=== PATIENT | male | born 1985 ===

== ENCOUNTER 2017-01-26 00:30 | Inpatient (IN) | payer MEDICAID, SELFPAY ==
[2017-01-26] MEDS ORDERED: Morphine 4 MG/ML VIAL IV ONE ×2 (01:06→02:14)
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
[2017-01-26] MEDS ORDERED: Morphine 4 MG/ML VIAL ONE ×2 (01:09→02:10)
[2017-01-26 01:42] LABS: BASO # 0.1 K/uL (0.0-0.2); BASO % 0.7 % (0.0-2.0); EOS # 0.1 K/uL (0.0-0.7); EOS % 0.6 % (0.0-4.0); HEMOGLOBIN 12.6 g/dL (12.0-18.0); LYMPH # 2.9 K/uL (1.0-4.3); LYMPH % 24.7 % (20.0-40.0); MEAN CELL VOLUME 83.2 fl (80.0-94.0); MEAN CORPUSCULAR HEMOGLOBIN 26.9 pg (27.0-31.0); MEAN CORPUSCULAR HGB CONC 32.4 g/dL (33.0-37.0); MEAN PLATELET VOLUME 8.4 fl (7.2-11.7); MONO # 0.4 K/uL (0.0-0.8); MONO % 3.8 % (0.0-10.0); NEUT # 8.2 K/uL (1.8-7.0); NEUT % 70.2 % (50.0-75.0); NRBC % 0.2 % (0.0-0.0); RBC 4.67 Mil/uL (4.40-5.90); RED CELL DISTRIBUTION WIDTH 14.8 % (11.5-14.5); WHITE BLOOD COUNT 11.7 K/uL (4.8-10.8)
[2017-01-26 01:54] LABS: ALB/GLOB RATIO 1.6 (1.0-2.1); ALBUMIN 4.7 g/dL (3.5-5.0); ALT/SGPT 63 U/L (21-72); AST/SGOT 33 U/L (17-59); BLOOD UREA NITROGEN 13 mg/dl (9-20); CALCIUM 9.4 mg/dL (8.4-10.2); GFR AFRICAN-AMERICAN > 60; GFR NON-AFRICAN AMERICAN > 60
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
[2017-01-26 02:47] LABS: INR 1.2 (0.9-1.2); PROTHROMBIN TIME 12.2 Seconds (9.8-13.1)
[2017-01-26] MEDS ORDERED: Potassium Chl 20 mEq in NS 1,000 ML IV SCH (04:00)
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
--- NOTE | 2017-01-26 08:40 | RAD ---
HISTORY: admission COMPARISON: No prior. FINDINGS: LUNGS: No active pulmonary disease. PLEURA: No significant pleural effusion identified, no pneumothorax apparent. CARDIOVASCULAR: Normal. OSSEOUS STRUCTURES: No significant abnormalities. VISUALIZED UPPER ABDOMEN: Normal. OTHER FINDINGS: None. IMPRESSION: No active disease. No preliminary report provided by emergency department personnel.
[2017-01-26] MEDS ORDERED: Thrombin Topical 5,000 IU Spray Kit ONE (09:58)
[2017-01-26 10:15] LABS: SQUAMOUS EPITHIAL < 1 /hpf (0-5); URINE BILIRUBIN NEGATIVE (NEGATIVE); URINE BLOOD NEGATIVE (NEGATIVE); URINE CLARITY CLEAR (Clear); URINE COLOR YELLOW (YELLOW); URINE GLUCOSE (UA) NEG (Normal); URINE LEUKOCYTE ESTERASE NEG Leu/uL (Negative); URINE NITRATE NEGATIVE (NEGATIVE); URINE PROTEIN NEGATIVE (NEGATIVE); URINE UROBILINOGEN 0.2-1.0 mg/dL (0.2-1.0)
[2017-01-26] MEDS: Morphine 4 MG/ML VIAL IVP PRN (10:41)
[2017-01-26] MEDS ORDERED: EPINEPHrine 1 mg/ml (1:1000) Inj ONE (11:06)
[2017-01-26] MEDS ORDERED: Propofol 10 mg/ml Inj (20 ML) ONE (11:48)
[2017-01-26] MEDS ORDERED: Rocuronium 10 mg/ml (5 ml) ONE ×3 (11:49→15:04)
[2017-01-26] MEDS ORDERED: Midazolam 2 MG/2 ML VIAL ONE (11:49)
[2017-01-26] MEDS ORDERED: Dexamethasone 4 mg/1 ml ONE (11:51)
[2017-01-26] MEDS ORDERED: Lactated Ringer's 1,000 ML IV ONE ×3 (12:30→17:30)
[2017-01-26] MEDS ORDERED: Sevoflurane - Inhalation Anesthetic Liq (250 ml) ONE (12:34)
[2017-01-26] MEDS ORDERED: Neostigmine Methylsulfate 2 MG/2 ML ML IV ONE (14:24)
[2017-01-26] MEDS ORDERED: Neostigmine Methylsulfate 3mg/3ml Syringe IV ONE (14:24)
[2017-01-26] MEDS ORDERED: Lactated Ringer's 1,000 ML IV SCH (15:41)
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
[2017-01-26] MEDS: HYDROmorphone 0.5 mg/0.5 ml ISec IVP PRN ×2 (16:50→17:40)
[2017-01-26] MEDS ORDERED: Oxycodone/Acetaminophen 5/325 mg Tab PO PRN (17:00)
[2017-01-26] MEDS ORDERED: ceFAZolin 2 GM in Sodium Chloride 0.9% 100 ML IVPB SCH (17:00)
[2017-01-26] MEDS ORDERED: HYDROmorphone 0.5 mg/0.5 ml ISec IVP PRN (17:01)
--- NOTE | 2017-01-26 17:08 | RAD ---
PROCEDURE: Left Femur Radiographs. HISTORY: ORIF left femur COMPARISON: 01/26/2017 TECHNIQUE: AP and Lateral Radiographs of the left femur. FINDINGS: FEMUR: Status post open reduction and internal fixation of an acute displaced fracture in the proximal diaphysis of femur with dynamic screw and intramedullary chloe. There is near normal alignment of fracture fragments. Bone mineralization is normal. SOFT TISSUES: Normal. OTHER FINDINGS: None. IMPRESSION: Status post ORIF of acute proximal femoral fracture, near normal alignment of fracture fragments.
[2017-01-26] MEDS ORDERED: Sodium Chloride 0.9% 1,000 ML IV SCH (17:15)
--- NOTE | 2017-01-26 17:42 | CARD ---
APPROVED REPORT EKG Measurement Heart [id number] <Conclusion> Normal sinus rhythm Minimal voltage criteria for LVH, may be normal variant Early repolarization Borderline ECG
[2017-01-26] MEDS: ceFAZolin 2 GM in Sodium Chloride 0.9% 100 ML IVPB SCH (20:47)
[2017-01-26] MEDS: Oxycodone/Acetaminophen 5/325 mg Tab PO PRN (22:23)
[2017-01-27] MEDS: Morphine 4 MG/ML VIAL IVP PRN ×5 (00:16→23:27)
[2017-01-27] MEDS: ceFAZolin 2 GM in Sodium Chloride 0.9% 100 ML IVPB SCH ×2 (04:14→12:23)
[2017-01-27 06:06] LABS: HEMOGLOBIN 10.9 g/dL (12.0-18.0); MEAN CELL VOLUME 82.2 fl (80.0-94.0); MEAN CORPUSCULAR HEMOGLOBIN 27.6 pg (27.0-31.0); MEAN CORPUSCULAR HGB CONC 33.6 g/dL (33.0-37.0); RBC 3.93 Mil/uL (4.40-5.90); RED CELL DISTRIBUTION WIDTH 14.6 % (11.5-14.5); WHITE BLOOD COUNT 10.1 K/uL (4.8-10.8)
[2017-01-27 06:22] LABS: BLOOD UREA NITROGEN 12 mg/dl (9-20); CALCIUM 8.7 mg/dL (8.4-10.2); GFR AFRICAN-AMERICAN > 60; GFR NON-AFRICAN AMERICAN > 60
[2017-01-27] MEDS: Oxycodone/Acetaminophen 5/325 mg Tab PO PRN ×2 (10:36→21:17)
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
[2017-01-27] MEDS ORDERED: Enoxaparin 40 mg Syringe SC STA (13:46)
--- NOTE | 2017-01-27 16:03 | CP.PCM.PN ---
Subjective - Date & Time of Evaluation Date of Evaluation: 01/27/17 Time of Evaluation: 16:00 - Subjective Subjective: S- pt with MINIMAL post op discomfort Objective - Vital Signs/Intake and Output Vital Signs (last 24 hours): Temp Pulse Resp BP Pulse Ox 98.6 F 93 H 20 146/82 98 01/27/17 08:01 01/27/17 08:01 01/27/17 08:01 01/27/17 08:01 01/27/17 08:01 - Medications Medications: Current Medications Enoxaparin Sodium (Lovenox) 40 mg SC DAILY [facility] PRN Reason: Protocol Famotidine (Pepcid) 20 mg IVP DAILY [facility] Last Admin: 01/27/17 10:37 Dose: 20 mg Hydromorphone HCl (Dilaudid) 1 mg IVP Q4 PRN PRN Reason: Pain, severe (8-10) Lactated Ringer's (Lactated Ringer's) 1,000 mls @ 50 mls/hr IV .Q20H [facility] Sodium Chloride (Sodium Chloride 0.9%) 1,000 mls @ 100 mls/hr IV .Q10H [facility] Stop: 01/27/17 17:03 Ketorolac Tromethamine (Toradol) 30 mg IM Q6 PRN PRN Reason: Pain, moderate (4-7) Last Admin: 01/26/17 04:46 Dose: 30 mg Morphine Sulfate (Morphine) 2 mg IVP Q4 PRN PRN Reason: Pain, severe (8-10) Last Admin: 01/27/17 07:59 Dose: 2 mg Oxycodone/Acetaminophen (Percocet 5/325 Mg Tab) 1 tab PO Q4 PRN PRN Reason: Pain, moderate (4-7) Stop: 01/29/17 17:01 Last Admin: 01/27/17 14:50 Dose: 1 tab Oxycodone/Acetaminophen (Percocet 5/325 Mg Tab) 2 tab PO Q6 PRN PRN Reason: Pain, severe (8-10) Stop: 01/29/17 17:01 Last Admin: 01/27/17 10:36 Dose: 2 tab - Labs Labs: 01/27/17 04:55 01/27/17 04:55 PT 12.2 Seconds (9.8-13.1) 01/26/17 02:19 INR 1.2 (0.9-1.2) 01/26/17 02:19 - Skin Skin Exam: Normal Color - Additional Findings Additional findings: systemic- wnl Musculoskekltal- stance gait - defrred pt comfoprtable at bedrest ortthopedically stable post op xrays- excellent position of construct Assessment and Plan - Assessment and Plan (Free Text) Assessment: A- s/p IM interlocking naiul P- foot flat weight bearing with crutches orthopedically stable
--- NOTE | 2017-01-27 16:19 | RAD ---
INTRAOPERATIVE FLUOROSCOPY LEFT FEMUR: Intra under fluoroscopy is utilized in open reduction and internal fixation of left femoral fracture. Multiple spot fluoroscopic images demonstrate stepwise approached to inserting an intramedullary nail transfixed by proximal and distal screws reducing the diaphyseal fracture. 167.6 seconds of fluoroscopy time was utilized. Please see operative report further detail. IMPRESSION: As discussed above.
[2017-01-28] MEDS: Morphine 4 MG/ML VIAL IVP PRN (05:30)
[2017-01-28] MEDS: Oxycodone/Acetaminophen 5/325 mg Tab PO PRN ×2 (08:16→13:27)
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
[2017-01-28] MEDS ORDERED: Enoxaparin 40 mg Syringe SC SCH (09:00)
[2017-01-28] MEDS ORDERED: Bisacodyl 5mg EC Tab PO PRN (09:39)
[2017-01-28 15:58] VITALS: BP 141/90; PULSE 93; RESP 18; TEMP 98.1; O2SAT 94
== END 2017-01-28 20:34 | disposition home or self-care (01) | DRG 482 ==
LOC: H.ER 00:30 → H.ERHOLD 02:30 → H.MEDSURG1 03:58
PROVIDERS: ADMIT Internal Medicine; ATTEND Internal Medicine
PROC: 0QS906Z Reposition Left Femoral Shaft with Intramedullary Internal Fixation Device, Open Approach (ICD-10-PCS; principal; 2017-01-26 12:00)
PROC: F07Z9FZ Gait Training/Functional Ambulation Treatment using Assistive, Adaptive, Supportive or Protective Equipment (ICD-10-PCS; 2017-01-27)
DX: S72.392A Other fracture of shaft of left femur, initial encounter for closed fracture (principal); V03.00XA Pedestrian on foot injured in collision with car, pick-up truck or van in nontraffic accident, initial encounter; Y92.480 Sidewalk as the place of occurrence of the external cause

== ENCOUNTER 2017-03-02 10:52 | Emergency (ER) | payer MEDICAID, SELFPAY ==
[2017-03-02 11:01] VITALS: BP 132/106; PULSE 99; TEMP 97; BMI 25.9
[2017-03-02 11:12] VITALS: RESP 16; O2SAT 99
--- NOTE | 2017-03-02 11:32 | ED PDOC ---
HPI: Wound Care - HPI Time Seen by Provider: 03/02/17 11:17 Chief Complaint (Nursing): Lower Extremity Problem/Injury History Per: Patient Exam Limitations: no limitations Location Of Injury: Left: Leg (wound) Severity: None Additional Complaint(s): Patient presents for wound check to left leg. Patient had left ORIF femur surgical repair by Dr Marvin on 01/26/17. He states rachele removed last week and wound opened, he went to see the doctor and steristrips applied, which fell off 2 days ago. Patient is taking Keflex 500mg. Denies any fever, drainage or pain. Past Medical History Reviewed: Historical Data, Nursing Documentation, Vital Signs Vital Signs: Last Vital Signs Temp 97 F L 03/02/17 11:08 Pulse 99 H 03/02/17 11:08 Resp 16 03/02/17 11:08 BP 132/106 H 03/02/17 11:08 Pulse Ox 99 03/02/17 11:08 - Medical History PMH: Fractures (femur) - Family History Family History: States: Unknown Family Hx - Home Medications Home Medications: Ambulatory Orders Medication Instructions Recorded Aspirin [Adult Low Dose Aspirin EC] 81 mg PO BID #60 tablet. 01/28/17 Docusate [Colace] 100 mg PO BID #30 cap 01/28/17 Ferrous Sulfate [Feosol] 325 mg PO BID #30 tab 01/28/17 oxyCODONE/Acetaminophen [Percocet 1 tab PO Q6 PRN #30 tab 01/28/17 5/325 mg Tab] - Allergies Allergies/Adverse Reactions: Allergies Allergy/AdvReac Type Severity Reaction Status Date / Time No Known Allergies Allergy Verified 10/04/15 20:17 Review of Systems Constitutional: Negative for: Fever Cardiovascular: Negative for: Chest Pain Respiratory: Negative for: Shortness of Breath Gastrointestinal: Negative for: Abdominal Pain Genitourinary Male: Negative for: Dysuria Musculoskeletal: Positive for: Leg Pain Skin: Positive for: Other (wound to left leg). Negative for: Rash Physical Exam - Reviewed Nursing Documentation Reviewed: Yes Vital Signs Reviewed: Yes - Physical Exam Appears: Positive for: Well, Non-toxic, No Acute Distress Head Exam: Positive for: ATRAUMATIC, NORMAL INSPECTION, NORMOCEPHALIC Skin: Positive for: Warm, Dry Eye Exam: Positive for: Normal appearance Neck: Positive for: Painless ROM Extremity: Positive for: Normal ROM, Other (left lateral thigh with 1cm x1cm oval shaped wound with granulating tissue, no surrounding erythema, no drainage , no foul odor). Negative for: Tenderness, Swelling Neurologic/Psych: Positive for: Alert, Oriented, Gait (using crutches) - ECG O2 Sat by Pulse Oximetry: 99 (room air) Pulse Ox Interpretation: Normal Medical Decision Making Medical Decision Making: Patient presents for wound check to left leg. Wound appears clean, no foul odor , erythema or discharge. Wound cleansed with NS and bacitracin and dressing applied. recommend follow up in wound clinic and with DR Marvin in office Disposition - Clinical Impression Clinical Impression: Visit for wound check - Patient ED Disposition Is Patient to be Admitted: No Counseled Patient/Family Regarding: Diagnosis, Need For Followup - Disposition [facility]errals: [facility] [Outside] Travis Marvin III, MD [Staff Provider] - Disposition: Routine/Home Disposition Time: 11:31 Condition: STABLE Additional Instructions: Please follow up in wound care clinic and with your surgeon. Keep area clean and dry. May wash gently with soap and water, do not use alcohol or iodine solution. May wear dressing during day while out and leave open to air when at home resting. Return to ER if fever occurs, redness or swelling around wound, pus in the wound. Instructions: Acute Wound Care (ED) Forms: [facility] (Mauritanian) - POA Present On Arrival: None
== END 2017-03-02 12:14 | disposition home or self-care (01) ==
LOC: H.ER 10:52
DX: Z48.00 Encounter for change or removal of nonsurgical wound dressing (principal)